=== PATIENT | female | born 1955 | race Caucasian/White ===

== ENCOUNTER 2022-09-19 12:31 | Observation (INO) | payer MEDICARE, SELFPAY ==
[2022-09-19] VITALS (14 sets, daily range): BP systolic 103–155; BP diastolic 65–93; PULSE 62–78; RESP 11–23; TEMP 36.3–36.7; O2SAT 92–100
--- NOTE | 2022-09-19 13:50 | ECG_ITS ---
[facility] Test Date: 2022-09-19 Pat Name: Fatemeh Garza Department: Room: Gender: Female Patent Engineer: : 1955 Requested By: Lawson Tierney Order Number: [id number] Carlos MD: Gabriel Zhang M.D. Measurements Intervals [place] Rate: 61 P: 51 TX: 180 QRS: 53 QRSD: 86 T: 57 QT: 401 QTc: 407 Interpretive Statements SINUS RHYTHM No previous ECG available for comparison Electronically Signed On 09-19-2022 18:04:23 DRIVER EDUCATION INSTRUCTOR by Gabriel Zhang M.D. [id number]
--- NOTE | 2022-09-19 13:50 | XRR_ITS ---
PROCEDURE INFORMATION: Exam: XR Chest Exam date and time: 09/19/2022 1:55 PM Age: 67 years old Clinical indication: Other: Palpitations TECHNIQUE: Imaging protocol: Radiologic exam of the chest. Views: 1 view. COMPARISON: No relevant prior studies available. FINDINGS: Lungs: No focal infiltrate or consolidation. Minimal scarring. Pleural spaces: Unremarkable. No pleural effusion. No pneumothorax. Heart/Mediastinum: Unremarkable. No cardiomegaly. Bones/joints: Unremarkable. Soft tissues: Overlying soft tissues of the breasts with nipple shadows noted about the lower lung region bilaterally. XR/XR chest 1V portable [id number] IMPRESSION: No acute cardiopulmonary abnormality.
--- NOTE | 2022-09-19 13:52 | W.ED.ARRPALP ---
HPI - Arrhythmia/Palpitations General: Chief Complaint: Chest Pain Stated Complaint: [facility] for possible [facility] attack Time Seen by Provider: 09/19/22 13:24 Source: patient and family Mode of arrival: ambulatory Limitations: no limitations History of Present Illness: This patient made her way to the emergency department because of an episode of palpitations associated chest pressure and right arm pressure that began this morning approximately 10 AM. She states it lasted approximately 45 minutes and resolved prior to arriving at this facility. She states she has had occasional episodes of similar nature in the past but did not seem to be as intense or last as long in the past. She denies any history of known arrhythmias. She denies any known history of heart disease. She does not use tobacco or alcohol or street drugs. She drinks some caffeinated beverages during the day but that has been stable for some period of time. She takes venlafaxine but no other medications currently. Otherwise she is healthy individual and does her activities of daily living without any discomfort to include chest pain shortness of breath etc. No recent illness. No [id number]-[id number] medications such as cough and cold medicines. No history of thyroid dysfunction. The episode occurred today while driving with her family. She denies any history of anxiety a significant nature or panic attacks etc. MD complaint: rapid heart beat and palpitations Associated symptoms: Reports nausea; Deny anxiety, pre-syncope, syncope or vomiting Review of Systems Const: Denies: fever(s) or chills Eyes: Denies: change in vision ENMT: Denies: throat pain, odynophagia, nasal discharge or nasal congestion Card: Reports: palpitations; Denies: irregular heart rhythm, lightheadedness, syncope or pre-syncope Resp: Denies: dyspnea, productive cough, non-productive cough, wheezing or stridor GI: Reports: nausea; Denies: abdominal pain, vomiting or diarrhea : Denies: flank pain, difficulty voiding, dysuria or urinary frequency Musc: Denies: neck pain, back pain, extremity pain or extremity swelling Skin/Breast: Denies: rash Neuro: Denies: numbness in extremities, weakness in extremities, confusion or Slurred speech present Psych: Denies: anxiety or depression Physical Exam Narrative: EXAM NARRATIVE: She is not appears calm, cooperative, in no acute distress. Speech is goal-directed. Const: COMMON NORMALS: no acute distress, average body habitus and patient oriented x3 GENERAL APPEARANCE: cooperative and comfortable ORIENTATION/CONSCIOUSNESS: Yes awake HENMT: COMMON NORMALS: normocephalic, Normal nasal mucous membranes and turbinates present, moist oral mucous membranes and oropharynx normal HEAD & SCALP: normocephalic FACE & SINUS: normal facial exam NOSE: Normal nasal mucous membranes and turbinates present Eye: COMMON NORMALS: Equal, round and reactive pupils present, EOMs intact bilaterally and conjunctivae normal CONJUNCTIVA: Yes conjunctivae normal PUPIL: Yes Equal, round and reactive pupils present Neck/C-Spine: COMMON NORMALS: full ROM, no lymphadenopathy and Thyroid normal THYROID: Thyroid normal Chest: COMMONS NORMALS: normal inspection of the chest Resp: COMMON NORMALS: normal respiratory effort, No retractions, No use of accessory muscles and clear to auscultation bilaterally AUSCULTATION: clear to auscultation bilaterally Cardio: COMMON NORMALS: regular rate, regular rhythm, No murmurs present (Cardio) and Peripheral pulses 2+ throughout RATE: regular rate RHYTHM: regular rhythm PERIPHERAL PULSES: Peripheral pulses 2+ throughout GI: COMMON NORMALS: Normal to inspection, nondistended, normoactive bowel sounds present, Soft to palpation and non-tender PALPATION: Yes Soft to palpation : COMMON NORMALS: Yes no CVA tenderness BLADDER/KIDNEY EXAM: Yes no CVA tenderness Back/Pelvis: COMMON NORMALS: no CVA tenderness, thoracic and lumbar spine normal to inspection and no thoracic nor lumbar tenderness Extremity: COMMON NORMALS: normal to inspection, full ROM, capillary refill normal, no calf tenderness and no pedal edema Neuro: COMMON NORMALS: patient oriented x3, moves all extremities, no focal motor deficits and no sensory deficits noted CRANIAL NERVES: Yes CN normal except as noted SPEECH: speech normal Psych: COMMON NORMALS: mental status grossly normal, cooperative and speech normal ATTITUDE: Yes calm and Yes engaged ACTIVITY/MOTOR BEHAVIOR: Yes appropriate eye contact SPEECH: Yes normal speech MOOD & AFFECT: Yes euthymic mood Skin: COMMON NORMALS: no rashes or lesions noted, no wounds and turgor normal GENERAL SKIN EXAM: no rashes or lesions noted and turgor normal Course Reevaluation(s): Reevaluation #1: Patient'sInitial troponin is elevated and her delta put troponin continues to rise. She is remained chest pain-free at this time. No acute EKG is noted but I do not have any prior EKGs for comparison. I discussed current findings and conservative recommendations and that continued observation and/or other testing may be indicated. Time: 15:23 Consultations: Consultation #1: Discussed with Dr. Morris who will evaluate the patient and make recommendations but she may be a viable for either outpatient stress testing and/or acute echocardiogram. Time: 15:24 Vital Signs: Vital signs: Vital Signs Temperature 97.4 F L 09/19/22 12:36 Pulse Rate 75 09/19/22 12:36 Respiratory Rate 14 09/19/22 12:36 Blood Pressure 128/84 09/19/22 12:36 Pulse Oximetry 99 09/19/22 12:36 Oxygen Delivery Me thod 09/19/22 12:36 MDM - Arrhythmia/Palpitations Medical Decision Making This patient with no prior history of cardiovascular disease presented to our emergency department from home. She had a what she estimates is approximately 45 minutes of what she described as a sensation of heart beating fast with fullness in her chest and down into her right arm. She states she has had short durations of less intense symptoms off and on for some time. She had no contributing factors such as street drug use, caffeine use, energy drinks etc. She was pain-free at arrival. Subsequent work-up to evaluate for potential etiologies of her palpitations did reveal initial troponin elevated over the URL and a subsequent troponin was also elevated and a delta greater than 10.Even though her heart score is only estimated to be at 3 given her positive troponins it is reasonable for us to place her in observation for continued work-up. This was reviewed with the attending hospitalist who will interviewed the patient and agreed that the patient will be placed in observation for work-up. Differential Diagnosis Likely palpitations; Unlikely artial fibrillation Lab Data I reviewed the patient's lab results. 09/19/22 12:52 09/19/22 12:52 Radiology Impressions Chest X-Ray 09/19/22 13:50 IMPRESSION: No acute cardiopulmonary abnormality. Laboratory Results WBC 4.3 10^3/uL (4.0-10.0) 09/19/22 12:52 RBC 4.42 10^6/uL (4.1-5.3) 09/19/22 12:52 Hgb 13.3 g/dL (11.5-15.3) 09/19/22 12:52 Hct 40.1 % (37.0-47.0) 09/19/22 12:52 MCV 90.7 fl (81-99) 09/19/22 12:52 MCH 30.1 pg (28.0-34.0) 09/19/22 12:52 MCHC 33.2 g/dL (30.0-36.0) 09/19/22 12:52 RDW 12.8 % (12.1-15.1) 09/19/22 12:52 Plt Count 275 10^3/cmm (130-400) 09/19/22 12:52 MPV 9.9 fL (7.4-10.4) 09/19/22 12:52 Neut % (Auto) 75.6 % 09/19/22 12:52 Lymph % (Auto) 17.6 % 09/19/22 12:52 [place] % (Auto) 5.9 % 09/19/22 12:52 Eos % (Auto) 0.2 % 09/19/22 12:52 Baso % (Auto) 0.5 % 09/19/22 12:52 Neut # (Auto) 3.22 10^3/uL (1.8-7.7) 09/19/22 12:52 Lymph # (Auto) 0.8 10^3/uL (0.8-4.8) 09/19/22 12:52 [place] # (Auto) 0.3 10^3/uL (0.2-0.9) 09/19/22 12:52 Eos # (Auto) 0.0 10^3/uL (0.0-0.8) 09/19/22 12:52 Baso # (Auto) 0.0 10^3/uL (0.0-0.1) 09/19/22 12:52 Nucleated RBC % (auto) 0 % 09/19/22 12:52 Nucleated RBCs # 0.0 /100WBC 09/19/22 12:52 Sodium 135 mmol/L (136-145) L 09/19/22 12:52 Potassium 3.9 mmol/L (3.5-5.1) 09/19/22 12:52 Chloride 100 mmol/L (98-107) 09/19/22 12:52 Carbon Dioxide 24 mmol/L (22-29) 09/19/22 12:52 Anion Gap 14.9 (5-19) 09/19/22 12:52 BUN 13 mg/dL (8-23) 09/19/22 12:52 Creatinine 0.7 mg/dL (0.5-0.9) 09/19/22 12:52 GFR Calculation 83.5 mL/min (90-130) L 09/19/22 12:52 Glucose 94 mg/dL (65-115) 09/19/22 12:52 Calculated Osmolality 280 mOsm/kg (285-295) L 09/19/22 12:52 Calcium 9.8 mg/dL (8.5-10.5) 09/19/22 12:52 Troponin T Baseline 47 ng/L (0-10) H 09/19/22 12:52 Troponin T 120 Minute 60.03 ng/L (0-10) H 09/19/22 14:39 Delta Troponin T 13.03 ABS# (0-10) H* 09/19/22 14:39 TSH 1.24 uIU/mL (0.27-4.20) 09/19/22 12:52 EKG Data EKG 1: I personally reviewed and interpreted this EKG as follows: Interpretation: Contemporaneous review of EKG reveals a normal sinus rhythm 71 bpm. Normal DC interval, QRS duration, corrected QT interval. Normal axis. Hyperdynamic T waves noted. Other EKG comments: Chest X-Ray 09/19/22 13:50 IMPRESSION: No acute cardiopulmonary abnormality. EKG 2: I personally reviewed and interpreted this EKG as follows: Interpretation: Contemporaneous review of second EKG this visit reveals a normal sinus rhythm at 61 bpm. Normal DC interval, QRS duration, corrected QT interval. Normal axis. No acute ST-T wave changes noted. Hyperdynamic T waves are still present. Other EKG comments: Chest X-Ray 09/19/22 13:50 IMPRESSION: No acute cardiopulmonary abnormality. Discharge Plan Discharge Patient Disposition: Placed in Observation Clinical Impression: Chest pain, Palpitation, Elevated troponin Condition: Stable Prescriptions: No Action venlafaxine 75 mg tablet 75 mg PO BID Tylenol Ex Str Rapid Release 500 mg Tablet 1,000 mg PO Q6H PRN (Reason: Pain) venlafaxine 37.5 mg tablet 37.5 mg PO QAM Rx Instructions: takes with 75mg am dose to =112.5mg Stool Softener 100 mg Capsule 100 mg PO DAILY PRN (Reason: Constipation) Advil Dual Action 125-250 mg Tablet 4 tab PO Q8H PRN (Reason: Pain) Coding Level of Care Code ED Route Delivery Service Driver for Carlin Vang
[2022-09-19 14:03] LABS: Basophils % 0.5 %; Eosinophils % 0.2 %; Hematocrit 40.1 % (37.0-47.0); Hemoglobin 13.3 g/dL (11.5-15.3); Lymphocytes # 0.8 10^3/uL (0.8-4.8); Lymphocytes % 17.6 %; Mean Corpuscular HGB Conc 33.2 g/dL (30.0-36.0); Mean Corpuscular Hemoglobin 30.1 pg (28.0-34.0); Mean Corpuscular Volume 90.7 fl (81-99); Mean Platelet Volume 9.9 fL (7.4-10.4); Monocytes # 0.3 10^3/uL (0.2-0.9); Monocytes % 5.9 %; Neutrophils # 3.22 10^3/uL (1.8-7.7); Neutrophils % 75.6 %; Nucleated Red Blood Cells % 0 %; Platelet Count 275 10^3/cmm (130-400); Red Blood Count 4.42 10^6/uL (4.1-5.3); Red Cell Distribution Width 12.8 % (12.1-15.1); White Blood Count 4.3 10^3/uL (4.0-10.0)
[2022-09-19 14:20] LABS: Troponin(5th) Baseline 47 ng/L (0-10)
[2022-09-19 14:29] LABS: Anion Gap 14.9 (5-19); Blood Urea Nitrogen 13 mg/dL (8-23); Calcium 9.8 mg/dL (8.5-10.5); Carbon Dioxide 24 mmol/L (22-29); Chloride 100 mmol/L (98-107); Glomerular Filtration Rate 83.5 mL/min (90-130); Glucose 94 mg/dL (65-115); Osmolality Calculated 280 mOsm/kg (285-295); Potassium 3.9 mmol/L (3.5-5.1); Sodium 135 mmol/L (136-145); Thyroid Stimulating Hormone 1.24 uIU/mL (0.27-4.20)
--- NOTE | 2022-09-19 14:37 | PC.NURSE ---
PT IS PLACED ON CONTINUOUS SPO2, NIBP, AND CM.
--- NOTE | 2022-09-19 14:38 | PC.NURSE ---
VO TO HOLD ON IV INSERTION VIA DR. MACKENZIE.
[2022-09-19 15:04] LABS: Troponin 5 2HR 60.03 ng/L (0-10)
[2022-09-19 15:07] LABS: Troponin 5 2HR Delta 13.03 ABS# (0-10)
--- NOTE | 2022-09-19 15:43 | P.HP_ITS ---
Providers/Chief Complaint Chief Complaint: [facility] for possible [facility] History of Present Illness Fatemeh Garza is a 67 year old female who has history of palpitations present ing today with chief complaint of chest discomfort. Patient is stating that she was driving around 8:20 AM when she started experiencing chest discomfort with palpitations, it lasted for about an hour mostly her palpitation would subside within 20 to 30 minutes and maybe 15 minutes, she drinks 3 cups of coffee a day, does not smoke or drink alcohol, no history of coronary disease [place] or CHF. She followed up with PCP today because of persistent palpitations who recommended her to go to the ER. In the ER she is in sinus rhythm hemodynamically stable first troponin 40, second troponin 60 hospitalist was requested to admit her for delta troponin. She is chest pain-free, palpitations resolved hemodynamically stable at the time of evaluation. Not endorsing social stressors, she has not noticed any diarrhea, vomiting, fever, recurrence of chest pain. She describes her chest discomfort as burning/achy. She will most do Valsalva maneuvers to control her palpitations but this time it did not work at all. Review of Systems Const: Denies: fever(s) Eyes: Denies: change in vision ENMT: Denies: throat pain Card: Reports: chest pain and palpitations Resp: Denies: dyspnea GI: Denies: abdominal pain or heartburn : Denies: urinary incontinence Skin/Breast: Denies: rash Neuro: Denies: headache(s) Psych: Reports: anxiety Endo: Denies: polyuria Martín/Lymph: Denies: easy bruising All/Imm: Denies: urticaria Medications/Allergies Home Medications Medication Instructions Recorded Confirmed Last Taken Type acetaminophen 500 mg tablet 1,000 mg PO Q6H PRN Pain 09/19/22 09/19/22 09/19/22 History docusate sodium 100 mg capsule 100 mg PO DAILY PRN Constipation 09/19/22 09/19/22 Unknown History (Stool Softener) ibuprofen 125 mg-acetaminophen 250 4 tab PO Q8H PRN Pain 09/19/22 09/19/22 09/19/22 History mg tablet (Advil Dual Action) venlafaxine 37.5 mg tablet 37.5 mg PO QAM 09/19/22 09/19/22 09/19/22 History venlafaxine 75 mg tablet 75 mg PO BID 09/19/22 09/19/22 09/19/22 History Allergies Allergy/AdvReac Type Severity Reaction Status Date / Time No Known Allergies Allergy Verified 09/19/22 13:26 PFSH Acute PFSH: Medical History (Updated 09/19/22 @ 15:46 by Konstantin Nava MD) Palpitations Surgical History (Updated 09/19/22 @ 15:46 by Konstantin Nava MD) No pertinent past surgical history Family History (Updated 09/19/22 @ 15:46 by Konstantin Nava MD) Other CAD (coronary artery disease) Social History (Updated 09/19/22 @ 15:47 by Konstantin Nava MD) Smoking and tobacco status: never smoked Alcohol intake: never Substance/Drug Use: never Housing: House Vitals/I&O/Wt Last Vital Signs Temp 97.4 F L 09/19/22 12:36 Pulse 75 09/19/22 12:36 Resp 14 09/19/22 12:36 BP 128/84 09/19/22 12:36 Pulse Ox 99 09/19/22 12:36 O2 Del Method 09/19/22 12:36 Weight last 48 hrs Weight 63.503 kg Physical Exam Narrative: Patient is awake and alert Chest pain-free Hemodynamically stable No signs of palpitations or chest pain Awake and alert Anxious appearing S1, S2 No murmur appreciated Abdomen soft Euvolemic Family at the bedside Pleasant and cooperative Appears stated age Data 09/19/22 12:52 09/19/22 12:52 A&P Assessment and plan (1) Palpitation: (2) Chest pain: Plan Paroxysmal palpitations Add low-dose beta-lópez Check TSH Check drug screen Stress test in the morning Delta troponin noted No active chest pain I have counseled patient to try decaf instead of drinking 3 cups of coffee a day N.p.o. after midnight Check echo Currently hemodynamically stable Doing well on room air Check magnesium level Check vitamin B6 Check D-dimer Full code Cardiac diet N.p.o. after midnight Anticipating discharge within 48 hours Daughters present at the bedside helping me to get collateral information as well Spoke with the ED physician twice Attestations Medical Necessity Statement*: Anticipating discharge within 48 hours Diagnoses Palpitation R00.2 Chest pain R07.9
[2022-09-19] MEDS: aspirin 81 mg Chew Tablet 324 MG PO (15:47)
--- NOTE | 2022-09-19 15:50 | USCV_ITS ---
Fatemeh Garza Age: 67 Gender: F : 1955 Exam Date: 09/19/2022 16:24 Ordering Phys: Konstantin Nava MD Technologist: Isael Devries Exam Location: [facility] [place] Indication: palpitations BP: 131 / 91 HR: 71 Rhythm: Sinus Technical Quality: Adequate MEASUREMENTS (Male / Female) Normal Values 2D ECHO LV Diastolic Diameter PLAX 4.5 cm 4.2 - 5.9 / 3.9 - 5.3 cm LV Systolic Diameter PLAX 3.0 cm IVS Diastolic Thickness 1.1 cm 0.6 - 1.0 / 0.6 - 0.9 cm IVS Systolic Thickness 1.5 cm LVPW Diastolic Thickness 1.0 cm 0.6 - 1.0 / 0.6 - 0.9 cm LVPW Systolic Thickness 1.3 cm LVOT Diameter 2.0 cm LV Ejection Fraction 2D Teich 61.2 % LV Ejection Fraction MOD 2C 77.9 % LV Ejection Fraction 2C AL 77.5 % LA Diameter 3.9 cm M-MODE Aortic Annulus Diameter 3.4 cm LA Ao Ratio MM 1.1 MV E Point Septal Separation 0.7 cm DOPPLER AV Peak Velocity 121.0 cm/s LVOT Peak Velocity 98.0 cm/s AV Area Cont Eq vti 2.4 cm squared AV Area Cont Eq pk 2.6 cm squared MV Area PHT 5.0 cm squared Mitral E to A Ratio 1.2 MV E' Velocity 56.0 cm/s Mitral E to MV E' Ratio 11.6 Mitral E to LV E' Lateral Ratio 13.1 Mitral E to LV E' Septal Ratio 10.6 TR Peak Velocity 127.3 cm/s TR Peak Gradient 6.5 mmHg Right Atrial Pressure 3.0 mmHg Pulmonary Artery Systolic Pressu 9.5 mmHg RV Acceleration Time 0.1 s FINDINGS Left Ventricle Normal left ventricular size and systolic function, EF 74 %. No regional wall motion abnormalities. Right Ventricle The right ventricle is normal in size and function. Right Atrium The right atrium is normal in size. Left Atrium The left atrium is normal in size. Mitral Valve Thickened mitral valve. Trace mitral valve regurgitation. Aortic Valve No gross abnormalities noted Tricuspid Valve Trace tricuspid valve regurgitation. Pulmonic Valve No gross abnormalities noted Pericardium Normal pericardium without effusion. Aorta Normal ascending aorta dimension. IVC Normal inferior vena cava. CONCLUSIONS Normal left ventricular size and systolic function, EF 74 %. No regional wall motion abnormalities. Thickened mitral valve. Trace mitral valve regurgitation. Trace tricuspid valve regurgitation. Pulmonary artery systolic pressure is within normal limits. There is no pericardial effusion. There are no intracardiac masses. There is no pericardial effusion. No similar previous studies are available for comparison Dr Emma Joiner MD [facility] (Electronically Signed) Final Date: 20 September 2022 09:27 S
[2022-09-19 16:21] LABS: D Dimer 0.47 ug/mIFEU (0-0.59)
[2022-09-19] MEDS: pyridoxine 50 mg Tablet 25 MG PO (17:32)
[2022-09-19] MEDS: venlafaxine 75 mg Tablet PO (17:32)
[2022-09-19 19:17] LABS: Troponin 5 6HR 56.77 ng/L (0-10)
[2022-09-19 19:26] LABS: Troponin 5 6HR Delta 9.77 ng/L (0-12)
--- NOTE | 2022-09-19 19:50 | ECG_ITS ---
[facility] Test Date: 2022-09-19 Pat Name: Fatemeh Garza Department: Room: 264 Gender: Female Senior Painter: : 1955 Requested By: Lawson Tierney Order Number: [id number] Carlos MD: Emma Joiner M.D. Measurements Intervals [place] Rate: 60 P: 40 WI: 181 QRS: 41 QRSD: 92 T: 42 QT: 430 QTc: 430 Interpretive Statements SINUS RHYTHM Compared to ECG 09/19/2022 14:32:21 No significant changes Electronically Signed On 09-20-2022 21:52:31 SOLUTIONS ARCHITECT by Emma Joiner M.D. [id number]
[2022-09-19 20:02] LABS: Estmated Average Glucose 108; Hemoglobin A1C 5.4 % (4.0-6.0)
[2022-09-20] VITALS (7 sets, daily range): BP systolic 110–139; BP diastolic 70–81; PULSE 61–77; RESP 15–18; TEMP 36.7–37.1; O2SAT 94–97
--- NOTE | 2022-09-20 06:00 | ECG_ITS ---
[facility] Test Date: 2022-09-20 Pat Name: Fatemeh Garza Department: Room: 264 Gender: Female Research Investigator: : 1955 Requested By: Konstantin Nava Order Number: [id number] Carlos MD: Emma Joiner M.D. Interpretive Statements NAME OF STUDY: EXERCISE SESTAMIBI STRESS TEST INDICATION: ua, PROCEDURE: The baseline electrocardiogram showed normal sinus rhythm with normal ST-Ts. At the baseline, the patient's blood pressure was 120/83 mm Hg with a heart rate of 79. The patient exercised for 5 minutes and 59 seconds on a standard Blu protocol. Patient attained a maximum heart rate of 143 beats per minute(93% of the maximum predicted heart rate) with a blood pressure at the peak exercise of 190/90 mm Hg. The EKG at the peak exercise revealed no significant changes. Patient did not have any chest pain or any significant arrhythmis with the exercise Sestamibi was injected 1 minute prior to the peak exercise During the recovery phase, there were no new changes. Blood pressure at the end of the recovery phase was 142/89 mm Hg with a heart rate of 89 per minute. CONCLUSION: 1. No significant EKG changes with the treadmill exercise 2. No exercise-induced chest pain or cardiac arrhythmia 3. Impaired exercise tolerance, attained a maximum of 7.0 METs 4. Sestamibi/Sestamibi perfusion results pending; see separate report. Electronically Signed On 09-21-2022 17:05:01 ESCROW ASSISTANT by Emma Joiner M.D. [id number]
[2022-09-20 06:03] LABS: Anion Gap 11.4 (5-19); Blood Urea Nitrogen 10 mg/dL (8-23); Calcium 9.3 mg/dL (8.5-10.5); Carbon Dioxide 26 mmol/L (22-29); Chloride 107 mmol/L (98-107); Glomerular Filtration Rate 83.5 mL/min (90-130); Glucose 93 mg/dL (65-115); Magnesium 2.1 mg/dL (1.7-2.3); Osmolality Calculated 289 mOsm/kg (285-295); Potassium 4.4 mmol/L (3.5-5.1); Sodium 140 mmol/L (136-145)
[2022-09-20 06:19] LABS: Amphetamines Screen Urine Negative (Negative); Barbiturates Screen Urine Negative (Negative); Benzodiazepines Screen Urine Negative (Negative); Cocaine Screen Urine Negative (Negative); Opiate Screen Urine Negative (Negative); PCP Screen Urine Negative (Negative); THC Screen Urine Negative (Negative)
[2022-09-20] MEDS: venlafaxine 75 mg Tablet PO (08:28)
--- NOTE | 2022-09-20 13:18 | P.DS_ITS ---
Discharge Providers Date of Admission: 09/19/22 16:42 Date of Discharge: September 20, 2022 Attending Provider at Admission: Konstantin Nava MD Attending Provider at Discharge: Uma De León MD Diagnoses at Discharge Discharge Diagnosis (1) Palpitation: Status: Acute (2) Chest pain: Status: Acute Reason for Visit Reason for Visit: [facility] sent for possible heart attack Brief History: As per Dr. Nava Fatemeh Garza is a 67 year old female who has history of palpitations presenting today with chief complaint of chest discomfort.? Patient is stating that she was driving around 8:20 AM when she started experiencing chest discomfort with palpitations, it lasted for about an hour mostly her palpitation would subside within 20 to 30 minutes and maybe 15 minutes, she drinks 3 cups of coffee a day, does not smoke or drink alcohol, no history of coronary disease UT or CHF.? She followed up with PCP today because of persistent palpitations who recommended her to go to the ER.? In the ER she is in sinus rhythm hemodynamically stable first troponin 40, second troponin 60 hospitalist was requested to admit her for delta troponin.? She is chest pain-free, palpitations resolved hemodynamically stable at the time of evaluation.? Not endorsing social stressors, she has not noticed any diarrhea, vomiting, fever, recurrence of chest pain.? She describes her chest discomfort as burning/achy.? She will most do Valsalva maneuvers to control her palpitations but this time it did not work at all. Hospital Course Hospital Course Patient admitted for complaint of palpitations. She was asked to cut down on her coffee intake. She had a stress test today which did not show any evidence of acute ischemia. Echo was also completed which showed EF of 74% no other acute abnormalities. I recommended patient to have a Holter monitor worn as she has had trouble with palpitations for years. He states she lives in [facility] and will be tough for her to come back to the hospital for follow-up. He would like to pursue that as an outpatient with her primary care doctor. She will follow-up with her PCP next week as she already has an appointment and she will have that set up as an outpatient. Patient asymptomatic since overnight and has not had further symptoms. We will discharge her today in stable condition. Physical Exam Narrative: General: Alert oriented x3 HEENT: Normocephalic, atraumatic, EOMI, breathing room air Cardio: Regular rate rhythm, normal S1-S2 Respiratory: Good bilateral air entry, no wheezes no rhonchi appreciated GI: Abdomen soft, nontender, nondistended, bowel sounds + Extremities: no edema, no cyanosis Discharge Data Studies Completed and Pending Completed Studies During Hospitalization Category Date Time Status XR chest 1V portable [id number] Stat Exams 09/19/22 13:50 Completed CV. echo complete* [id number] Stat Ultrasound 09/19/22 15:50 Completed Pending at discharge Category Date Time Status Sestamibi Stress Test Request Routine Exams 09/20/22 06:00 Ordered NM ermias perf SPECT r/s* [id number] Routine Nuc Med 09/20/22 16:58 Ordered Radiology Impressions Chest X-Ray 09/19/22 13:50 IMPRESSION: No acute cardiopulmonary abnormality. Laboratory Results WBC 4.3 10^3/uL (4.0-10.0) 09/19/22 12:52 RBC 4.42 10^6/uL (4.1-5.3) 09/19/22 12:52 Hgb 13.3 g/dL (11.5-15.3) 09/19/22 12:52 Hct 40.1 % (37.0-47.0) 09/19/22 12:52 MCV 90.7 fl (81-99) 09/19/22 12:52 MCH 30.1 pg (28.0-34.0) 09/19/22 12:52 MCHC 33.2 g/dL (30.0-36.0) 09/19/22 12:52 RDW 12.8 % (12.1-15.1) 09/19/22 12:52 Plt Count 275 10^3/cmm (130-400) 09/19/22 12:52 MPV 9.9 fL (7.4-10.4) 09/19/22 12:52 Neut % (Auto) 75.6 % 09/19/22 12:52 Lymph % (Auto) 17.6 % 09/19/22 12:52 Garza % (Auto) 5.9 % 09/19/22 12:52 Eos % (Auto) 0.2 % 09/19/22 12:52 Baso % (Auto) 0.5 % 09/19/22 12:52 Neut # (Auto) 3.22 10^3/uL (1.8-7.7) 09/19/22 12:52 Lymph # (Auto) 0.8 10^3/uL (0.8-4.8) 09/19/22 12:52 Garza # (Auto) 0.3 10^3/uL (0.2-0.9) 09/19/22 12:52 Eos # (Auto) 0.0 10^3/uL (0.0-0.8) 09/19/22 12:52 Baso # (Auto) 0.0 10^3/uL (0.0-0.1) 09/19/22 12:52 Nucleated RBC % (auto) 0 % 09/19/22 12:52 Nucleated RBCs # 0.0 /100WBC 09/19/22 12:52 D-Dimer 0.47 ug/mIFEU (0-0.59) 09/19/22 12:52 Sodium 140 mmol/L (136-145) 09/20/22 05:20 Potassium 4.4 mmol/L (3.5-5.1) 09/20/22 05:20 Chloride 107 mmol/L (98-107) 09/20/22 05:20 Carbon Dioxide 26 mmol/L (22-29) 09/20/22 05:20 Anion Gap 11.4 (5-19) 09/20/22 05:20 BUN 10 mg/dL (8-23) 09/20/22 05:20 Creatinine 0.7 mg/dL (0.5-0.9) 09/20/22 05:20 GFR Calculation 83.5 mL/min (90-130) L 09/20/22 05:20 Glucose 93 mg/dL (65-115) 09/20/22 05:20 Estimat Average Glucose 108 09/19/22 12:52 Hemoglobin A1c 5.4 % (4.0-6.0) 09/19/22 12:52 Calculated Osmolality 289 mOsm/kg (285-295) 09/20/22 05:20 Calcium 9.3 mg/dL (8.5-10.5) 09/20/22 05:20 Phosphorus 3.0 mg/dL (2.5-4.5) 09/20/22 05:20 Magnesium 2.1 mg/dL (1.7-2.3) 09/20/22 05:20 Troponin T Baseline 47 ng/L (0-10) H 09/19/22 12:52 Troponin T 120 Minute 60.03 ng/L (0-10) H 09/19/22 14:39 Delta Troponin T 13.03 ABS# (0-10) H* 09/19/22 14:39 Troponin T Hi Sens 6Hr 56.77 ng/L (0-10) H 09/19/22 18:53 Troponin T Hi Sens 6Hr Delta 9.77 ng/L (0-12) 09/19/22 18:53 TSH 1.24 uIU/mL (0.27-4.20) 09/19/22 12:52 Urine Opiates Screen Negative ng/mL (Negative) 09/20/22 05:50 Ur Barbiturates Screen Negative ng/mL (Negative) 09/20/22 05:50 Ur Phencyclidine Scrn Negative ng/mL (Negative) 09/20/22 05:50 Ur Amphetamines Screen Negative ng/mL (Negative) 09/20/22 05:50 U Benzodiazepines Scrn Negative ng/mL (Negative) 09/20/22 05:50 Urine Cocaine Screen Negative ng/mL (Negative) 09/20/22 05:50 U Marijuana (THC) Screen Negative ng/mL (Negative) 09/20/22 05:50 Vitals Last Vital Signs Temp 98.8 F 09/20/22 11:53 Pulse 67 09/20/22 11:53 Resp 16 09/20/22 11:53 BP 113/81 09/20/22 11:53 Pulse Ox 94 09/20/22 11:53 O2 Del Method 09/20/22 11:53 Discharge Plan Discharge Patient Disposition: Home Condition: Stable Prescriptions: Continued venlafaxine 75 mg tablet 75 mg PO BID acetaminophen 500 mg Tablet 1,000 mg PO Q6H PRN (Reason: Pain) venlafaxine 37.5 mg tablet 37.5 mg PO QAM Rx Instructions: takes with 75mg am dose to =112.5mg Stool Softener 100 mg Capsule 100 mg PO DAILY PRN (Reason: Constipation) Advil Dual Action 125-250 mg Tablet 4 tab PO Q8H PRN (Reason: Pain) Discharge Orders: Discharge Order (Routine); Ordered 09/20/22 Ordered By: Uma De León Discharge Diet: Regular Discharge Activity: Resume usual activity Patient Instructions: Angina (DC), Opioid Safety Activity Restrictions/Additional Instructions: You are recommended to have a Holter monitor placed as an outpatient for at least 21 days to evaluate for your palpitations. As per your wishes you may have that done at your primary care's referral in [facility]. Please return to hospital should you experience worsening of symptoms or develop any new symptoms. Please follow-up with your PCP at your earliest convenience. Discharge Attestations Time Spent in Discharge Care*: less than 30 min Quality Metrics Clinical Quality Measures [ No reported AMI, CVA or VTE this stay] Coding Level of Care Code Acute Code for g Fwd Diagnoses Palpitation R00.2 Chest pain R07.9
--- NOTE | 2022-09-20 16:58 | NMCV_ITS ---
NM ermias perf SPECT r/s* [id number] Fatemeh Garza Age: 67 Gender: F : 1955 Exam Date: 09/20/2022 11:33 Ordering Phys: Konstantin Nava MD Technologist: LANCE Becerra Exam Location: [facility] Indications: CHEST PAIN STRESS TEST Please see separate stress test report in [facility] for full findings IMAGE PROTOCOL Rest/Stress 1 Exercise Day Radiopharmaceutical Dose (mCi) Administration Site Administered by Rest: Tc-99m 11.0 IV LANCE Becerra Sestamibi Stress:Tc-99m 32.4 IV LANCE Jack Sestamiaissatou Rest: 20-Sep-2022 60 Discovery 630 Stress: 20-Sep-2022 15 Discovery 630 Radiopharmaceutical was injected at 86 % maximum heart rate. Images obtained in supine and prone position. SPECT RESULTS Technical Quality: Excellent Raw Data Analysis: Normal Image Corrections: No attenuation or motion correction applied Summed Stress Score: 0 Summed Rest Score: 1 Summed Difference Score: 0 PERFUSION FINDINGS Fairly uniform myocardial tracer uptake with no significant perfusion abnormalities FUNCTIONAL RESULTS (calculated via Gated SPECT) Stress Image LV EF (%): 81 Stress EDV (mL):64 TID: 0.74 Stress ESV (mL):12 FUNCTIONAL FINDINGS: Segmental wall motion analysis revealing no gross wall motion abnormalities IMPRESSIONS 1. Unremarkable Myocardial perfusion imaging. 2. Normal LV ejection fraction of 81% 3. LV wall motion analysis revealing no gross wall motion abnormalities. 4. Normal LV volume Low probability for coronary ischemia, based on the above findings Dr Emma Joiner MD [facility] (Electronically Signed) Final Date: 20 September 2022 17:10 S
== END 2022-09-20 17:48 | disposition home or self-care (01) ==
LOC: ER 15:43 → MEDSURG 16:43
PROVIDERS: Admitting Provider Internal Medicine; Emergency Provider Emergency Medicine; Visit Provider Internal Medicine
DX: R00.2 Palpitations (principal); R07.89 Other chest pain; Z82.49 Family history of ischemic heart disease and other diseases of the circulatory system
CPT/HCPCS: 36415; 71045; 78452; 80048; 80306; 83036; 83735; 84100; 84443; 84484; 85025; 85378; 93005; 93017; 93306; 99285; A9500; G0378

== ENCOUNTER → 2022-12-11 12:36 | Outpatient (BNVA) | payer MEDICARE, SELFPAY | PROVIDERS: Visit Provider Internal Medicine | DX: R76.8 Other specified abnormal immunological findings in serum (principal); M79.89 Other specified soft tissue disorders | CPT/HCPCS: 36415; 73120; 83516; 85651; 86140; 86160; 86162; 86200; 86235; 86255; 86376; 86431; 86704; 86803; 87340; 99203 ==